=== PATIENT | male | born 2000 | race Caucasian/White ===

== ENCOUNTER 2022-10-24 19:30 | Emergency (ER) | payer BC, SELFPAY ==
[2022-10-24 19:45] VITALS: BP 132/85; PULSE 119; RESP 18; TEMP 38.6; O2SAT 98
[2022-10-24 20:16] LABS: Basophils Absolute Auto 0.01 K/mm3 (0.00-0.10); Basophils Percent Auto 0.1 % (0.0-1.0); Eosinophils Absolute Auto 0.27 K/mm3 (0.02-0.50); Eosinophils Percent Auto 2.2 % (1.0-6.0); Hemoglobin 16.5 g/dL (14.0-18.0); Immature Granulocyte Absolute 0.04 K/mm3 (0.00-0.00); Immature Granulocyte Percent A 0.3 % (0.0-0.0); Lymphocytes Percent Auto 3.2 % (18.0-42.0); Mean Corpuscular HGB Conc 35.1 g/dL (32.0-36.0); Mean Corpuscular Hemoglobin 29.7 pg (27.0-31.0); Mean Corpuscular Volume 84.5 fL (78.0-102.0); Monocytes Absolute Auto 0.27 K/mm3 (0.10-0.90); Monocytes Percent Auto 2.2 % (2.0-11.0); Neutrophils Absolute Auto 11.4 K/mm3 (1.7-7.2); Platelet Count Result 214 K/mm3 (150-420); Red Blood Count 5.56 M/mm3 (4.70-6.10); Red Cell Distribution Width 11.8 % (11.6-14.4); White Blood Count 12.4 K/mm3 (4.8-10.8)
[2022-10-24] MEDS: cefTRIAXone 1 GM, LIDOCAINE HCL 1% LOCAL INJ 2.1 ML IM (20:19)
[2022-10-24] MEDS: TETANUS,DIPHTHERIA,AC PERTUSSIS ADULT 0.5 ML (ADACEL) IM (20:22)
--- NOTE | 2022-10-24 20:28 | PC.NURSE ---
Mother departs from bedside. Pt medicated as ordered. PT denies possibility of STI. Pt has rash to bilateral upper thighs mainly to medial and anterior aspects. Pt denies swimming in fresh or salt water. PT states works at [employer] but is not involved in the maintenance of the [place]. Pt consents to exam. No other obvious wounds to thighs or inguinal area. Pt denies scrotal pain. No redness or rash to scrotum noted. No penile drainage or lesions noted. No inguinal lymphadenopathy or tenderness noted. Central pulses present and strong.
[2022-10-24 20:29] LABS: Alanine Aminotransferase 161 U/L (16-63); Albumin Level 4.4 g/dL (3.4-5.0); Alkaline Phosphatase 66 U/L (46-116); Anion Gap 11 mmol/L (8-16); Aspartate Amino Transferase 51 U/L (15-37); Bilirubin,Total 1.1 mg/dL (0.00-1.00); Blood Urea Nitrogen 14 mg/dL (7-18); Calcium 8.9 mg/dL (8.5-10.1); Carbon Dioxide 28 mmol/L (21-32); Chloride 102 mmol/L (98-108); Estimated Glomerular Filt Rate > 60; Glucose 106 mg/dL (70-99); Osmolality Calculated 292 mOsm/kg (285-295); Potassium 3.8 mmol/L (3.5-5.1); Sodium 141 mmol/L (136-145); Total Protein 7.7 g/dL (6.4-8.2)
[2022-10-24 20:32] LABS: Lactic Acid Reflex 1.5 mmol/L (0.4-2.0)
[2022-10-24 20:47] VITALS: BP 135/90; PULSE 111; RESP 20; TEMP 38.6; O2SAT 100
--- NOTE | 2022-10-24 20:56 | ED.GENADULT ---
HPI - General Adult General Chief complaint: Unspecified Stated complaint: Insect bite on inner Left arm Time Seen by Provider: 10/24/22 19:44 Source: patient Mode of arrival: ambulatory Limitations: no limitations History of Present Illness HPI narrative: patient with a insect bite to his left axillary area with a central punctate lesion with a surrounding area of erythema also have some rash in the groin and abdominal area non itchy with low-grade fever with no shortness of breath no headache no chest pain no nausea vomiting. Onset (ago): day(s) Severity: moderate Related Data Home Medications Medication Instructions Recorded Confirmed Allergy Relief (loratadine) 10 m PO PRN PRN Allergy Symptoms 10/24/22 10/24/22 Allergies Allergy/AdvReac Type Severity Reaction Status Date / Time No Known Allergies Allergy Verified 10/24/22 19:55 Review of Systems Review of Systems: All systems reviewed & are unremarkable except as noted in HPI and below PMFSH Past Medical History Medical History Allergies Body mass index (BMI) of 19 or less in adult Encounter for wellness examination in adult Irritable bowel syndrome with diarrhea Seasonal allergic rhinitis Surgical History Surgical History History of surgery on arm (~2011) [place] teeth extracted (~2016) Family History Family History Mother No problems noted. Father No problems noted. Grandparent Afib Grandparent Skin cancer Grandparent No problems noted. Grandparent No problems noted. Social History Social History Smoking status: Never smoker Alcohol intake: never Substance use: never Substance use type: does not use Exam Const: General: healthy appearing and no acute distress Nutritional Appearance: well nourished Limitations: no limitations HENMT: Head: normal to inspection Eyes: Conjunctivae: conjunctivae normal Neck: Neck: normal visual inspection Chest: Chest palpation & inspection: normal inspection of the chest Cardio: Rate: regular rate Rhythm: regular rhythm GI: GI Palp: Yes Soft to palpation : General: Yes bladder normal to palpation Urinary Catheter: Urinary Catheter: patent and draining Back/Spine/Pelvis: Back: no CVA tenderness Skin: Wounds: wounds noted Neuro: General: patient oriented x3 Cranial nerves: Yes Nystagmus not present Speech: normal speech Extrem: General: normal to inspection and no clubbing, cyanosis or edema Psych: Mental Status: mental status grossly normal Course Course Emergency Course: Labs reviewed with patient his white count is mildly elevated at 12,000 thousand patient does have a low-grade fever and received dose of antibiotic and advised to follow with his primary care physician. Vital Signs Vital signs: Vital Signs Temperature 38.6 C H 10/24/22 19:45 Pulse Rate 119 H 10/24/22 19:45 Respiratory Rate 18 10/24/22 19:45 Blood Pressure 132/85 10/24/22 19:45 Pulse Oximetry 98 10/24/22 19:45 Oxygen Delivery Room Air 10/24/22 19:45 Temperature 38.6 C H 10/24/22 20:47 Pulse Rate 111 H 10/24/22 20:47 Respiratory Rate 20 10/24/22 20:47 Blood Pressure 135/90 10/24/22 20:47 Pulse Oximetry 100 10/24/22 20:47 Oxygen Delivery Room Air 10/24/22 20:47 Medical Decision Making Vital Signs Vital Signs: Vital Signs Temperature 38.6 C H 10/24/22 19:45 Pulse Rate 119 H 10/24/22 19:45 Respiratory Rate 18 10/24/22 19:45 Blood Pressure 132/85 10/24/22 19:45 Pulse Oximetry 98 10/24/22 19:45 Oxygen Delivery Room Air 10/24/22 19:45 Temperature 38.6 C H 10/24/22 20:47 Pulse Rate 111 H 10/24/22 20:47 Respiratory Rate 10/24/22 20:47 Blood Pressure 135/90 10/24/22
--- NOTE | 2022-10-31 12:24 | PC.NURSE ---
final blood culture reports x2 reviewed. no growth after 5 days . no change in plan of care.
== END 2022-10-24 21:19 | disposition home or self-care (01) ==
PROVIDERS: Emergency Provider Emergency Medicine; PCP Family Medicine
DX: L03.112 Cellulitis of left axilla (principal); Z23 Encounter for immunization
CPT/HCPCS: 36415; 80053; 83605; 85025; 87040; 90471; 90715; 96372; 99283; J0696

== ENCOUNTER 2023-02-01 08:50 | Outpatient (CLI) | payer BC, SELFPAY ==
[2023-02-01 09:05] LABS: Appearance Urine Clear (Clear); Basophils Absolute Auto 0.02 K/mm3 (0.00-0.10); Basophils Percent Auto 0.3 % (0.0-1.0); Bilirubin Urine Negative (Negative); Blood Urine Trace-Intact (Negative); Color Urine Light Yellow (Yellow); Eosinophils Absolute Auto 0.31 K/mm3 (0.02-0.50); Eosinophils Percent Auto 4.8 % (1.0-6.0); Glucose Urine UA Negative (Negative); Hematocrit 46.3 % (40.0-54.0); Immature Granulocyte Absolute 0.04 K/mm3 (0.00-0.00); Immature Granulocyte Percent A 0.6 % (0.0-0.0); Ketones Urine Negative (Negative); Leukocyte Esterase Ur Negative (Negative); Lymphocytes Absolute Auto 1.54 K/mm3 (1.10-4.50); Lymphocytes Percent Auto 23.7 % (18.0-42.0); Mean Corpuscular HGB Conc 34.6 g/dL (32.0-36.0); Mean Corpuscular Volume 86.7 fL (78.0-102.0); Mean Platelet Volume 9.3 fl (8.7-11.0); Monocytes Absolute Auto 0.63 K/mm3 (0.10-0.90); Monocytes Percent Auto 9.7 % (2.0-11.0); Neutrophils Percent Auto 60.9 % (50.0-70.0); Nitrate Urine Negative (Negative); Platelet Count Result 236 K/mm3 (150-420); Protein Urine Negative (Negative); Red Blood Count 5.34 M/mm3 (4.70-6.10); Specific Grav Ur <= 1.005 (1.010-1.020); Urobilinogen Urine 0.2 mg/dL (0.2-1.0); White Blood Count 6.5 K/mm3 (4.8-10.8); pH Urine 6.5 (5.0-8.0)
[2023-02-01 09:21] LABS: Add Urine Microscopic? YES; Bacteria Urine Rare /hpf; RBC Urine 0-2 /hpf (0-2); WBC Urine None seen /hpf (0-3)
[2023-02-01 10:07] LABS: Erythrocyte Sedimentation Rate 2 mm/hr (0-15)
[2023-02-01 10:12] LABS: Alanine Aminotransferase 21 U/L (16-63); Albumin Level 4.2 g/dL (3.4-5.0); Alkaline Phosphatase 63 U/L (46-116); Anion Gap 7 mmol/L (8-16); Aspartate Amino Transferase 18 U/L (15-37); Bilirubin,Total 0.8 mg/dL (0.00-1.00); Blood Urea Nitrogen 9 mg/dL (7-18); Carbon Dioxide 33 mmol/L (21-32); Chloride 104 mmol/L (98-108); Cholesterol 153 mg/dL (0-200); Estimated Glomerular Filt Rate > 60; Ferritin 181 ng/mL (26-388); Folic Acid 12.4 ng/mL (8.6->20); GGT 26 U/L (15-85); Glucose 77 mg/dL (70-99); HDL Direct 63 mg/dL (40-60); Iron 90 ug/dL (65-175); LDL Cholesterol Calculated 76 mg/dL (<130); Osmolality Calculated 295 mOsm/kg (285-295); Percent Iron Saturation 32 % (12-57); Potassium 3.8 mmol/L (3.5-5.1); Sodium 144 mmol/L (136-145); Thyroid Stimulating Hormone 1.69 uIU/mL (0.36-3.74); Total Protein 7.1 g/dL (6.4-8.2); Triglycerides 68 mg/dL (0-150); Vitamin B12 342 pg/mL (193-986)
== END 2023-02-01 08:51 | disposition home or self-care (01) ==
LOC: CHSLAB 08:52
PROVIDERS: PCP Family Medicine; Visit Provider Family Medicine
DX: E78.2 Mixed hyperlipidemia (principal); K62.5 Hemorrhage of anus and rectum; R74.8 Abnormal levels of other serum enzymes
CPT/HCPCS: 36415; 80053; 80061; 81001; 82607; 82728; 82746; 82977; 83540; 83550; 84443; 85025; 85652

== ENCOUNTER 2023-02-15 10:18 | Outpatient (CLI) | payer BC, SELFPAY ==
[2023-02-20 19:26] LABS: Immunoglobulin A 213 mg/dL (47-310); TTG IGA AB <1.0 U/mL (<15.0)
[2023-02-21 22:06] LABS: Calprotectin, Stool 2750 mcg/g
== END 2023-02-15 10:19 | disposition home or self-care (01) ==
LOC: CHSLAB 10:19
PROVIDERS: Visit Provider Nurse Practitioner
DX: K62.5 Hemorrhage of anus and rectum (principal); R19.7 Diarrhea, unspecified
CPT/HCPCS: 36415; 82784; 83516; 83993; 87045; 87427; 87449; 87493

== ENCOUNTER 2023-03-10 00:08 | Day surgery (SDC) | payer BC, SELFPAY ==
[2023-02-26 13:39] VITALS: BMI 21.2
[2023-03-10 12:32] VITALS: BP 137/90; PULSE 111; RESP 18; TEMP 36.5; O2SAT 99
[2023-03-10] MEDS: LACTATED RINGERS 1,000 ML 150 ML IV CONT (12:41)
--- NOTE | 2023-03-10 12:54 | PM.HPGS ---
History of Present Illness History of Present Illness Consent: Risks, benefits, and alternatives have been discussed and questions answered. Patient agrees to proceed with procedure. Chief complaint: Diarrhea,Other fecal abnormalities, Narrative: Arash Patino is a 22 year old male Referred for investigation of diarrhea with blood. He was treated for a bug bite with Augmentin in September of this year and has had loose stools since then. He also has a family history of celiac disease. a calprotectin level was quite elevated at 2750. Stool cultures for infectious pathogens were negative. Review of Systems Review of Systems: All systems reviewed & are unremarkable except as noted in HPI and below PMFSH Past Medical History Medical History Allergic reaction due to antibacterial drug allergic reaction to Augmentin with rash starting 10/29/2022 after exposure Started 10/24/2022. Allergies BMI 20.0-20.9, adult Body mass index (BMI) of 19 or less in adult Cellulitis (10/24/22) left axilla, left thigh 10/24/2022. Diarrhea Elevated fecal calprotectin Elevated liver enzymes (10/24/22) AST 51 with ALT 161 in the ER 10/24/2022. AST 18, ALT 21 on 02/01/2023. Encounter for wellness examination in adult Family history of celiac disease Family hx of colon cancer Irritable bowel syndrome with diarrhea Rectal bleeding RLQ abdominal tenderness Seasonal allergic rhinitis Vitamin B12 deficiency (02/01/23) level low at 342 with goal greater than 400 with folic acid 12.4 on 02/01/2023. Surgical History Surgical History History of surgery on arm (~2011) [place] teeth extracted (~2017) Family History Family History Mother No problems noted. Father No problems noted. Grandparent Afib Grandparent Skin cancer Grandparent No problems noted. Grandparent No problems noted. Social History Social History Smoking status: Never smoker Alcohol intake: never Substance use: never Substance use type: does not use Lack of Transportation: No Lack of Food: Never True Current Housing: I Have Housing Concerned About Future Housing: No Difficulty Paying Gas/Electric Bills: No Difficulty Paying for Meds: No Currently Unemployed: No Education: Bachelor's Degree Difficulty w/ Childcare or Family Care: No Living arrangements: with family Spiritual care concerns: No Meds Home Medications and Allergies Home Medications Medication Instructions Recorded Confirmed Type Bacillus coagulans 1 billion cell 1 cell PO DAILY 01/22/23 02/26/23 History chewable tablet (Probiotic (B. coagulans)) calcium polycarbophil 625 mg 625 mg PO BID 01/22/23 02/26/23 History tablet (FiberCon) cyanocobalamin (vitamin B-12) 1,000 mcg PO DAILY 02/05/23 02/26/23 History 1,000 mcg tablet Allergies Allergy/AdvReac Type Severity Reaction Status Date / Time amoxicillin [From Augmentin] Allergy Intermediate Rash Verified 03/10/23 12:32 clavulanic acid Allergy Intermediate Rash Verified 03/10/23 12:32 [From Augmentin] clindamycin AdvReac Diarrhea Verified 03/10/23 12:32 Penicillins AdvReac Rash Verified 03/10/23 12:32 Vital Signs Vital Signs - 24 hr 03/10/23 12:32 Temperature 36.5 C Pulse Rate 111 H Respiratory Rate 18 Blood Pressure 137/90 Pulse Oximetry 99 Oxygen Delivery Room Air Exam Const: General: alert Orientation/consciousness: patient oriented x3 Resp: Auscultation: clear to auscultation bilaterally Cardio: Rhythm: regular rhythm GI: GI Palp: Yes Soft to palpation and No Tenderness to palpation present (GI) Neuro: General: patient oriented x3 Assessment and Plan Assessment and plan (1) Chronic diarrhea: Code(s): K52.9 - Noninfective g
--- NOTE | 2023-03-10 12:58 | WPDANESEPPF ---
Anes - Initial Pre Proc Eval Procedure: Operation Date: 03/10/23 13:45 Proposed Procedures p Colonoscopy - Vicente Cantrell MD Date/Time: 03/10/23 12:58 Surgeon: Vicente Cantrell MD Pre Op Diagnosis: Diarrhea,Other fecal abnormalities, Patient Data Age: 22 Gender: M Height: 1.65 m Weight: 54.7 kg Last Vital Signs Temp 97.7 F 03/10/23 12:32 Pulse 111 H 03/10/23 12:32 Resp 18 03/10/23 12:32 BP 137/90 03/10/23 12:32 Pulse Ox 99 03/10/23 12:32 O2 Del Method Room Air 03/10/23 12:32 Allergies Allergy/AdvReac Type Severity Reaction Status Date / Time amoxicillin [From Augmentin] Allergy Intermediate Rash Verified 03/10/23 12:32 clavulanic acid Allergy Intermediate Rash Verified 03/10/23 12:32 [From Augmentin] clindamycin AdvReac Diarrhea Verified 03/10/23 12:32 Penicillins AdvReac Rash Verified 03/10/23 12:32 Home Medications Medication Instructions Recorded Confirmed Type Bacillus coagulans 1 billion cell 1 cell PO DAILY 01/22/23 02/26/23 History chewable tablet (Probiotic (B. coagulans)) calcium polycarbophil 625 mg 625 mg PO BID 01/22/23 02/26/23 History tablet (FiberCon) cyanocobalamin (vitamin B-12) 1,000 mcg PO DAILY 02/05/23 02/26/23 History 1,000 mcg tablet Patient hx anesthesia problems: none Family hx anesthesia problems: none Results Review: All pre-operative results and documents have been reviewed as part of the pre-operative evaluation. [facility] Past Medical History Medical History Allergic reaction due to antibacterial drug allergic reaction to Augmentin with rash starting 10/29/2022 after exposure Started 10/24/2022. Allergies BMI 20.0-20.9, adult Body mass index (BMI) of 19 or less in adult Cellulitis (10/24/22) left axilla, left thigh 10/24/2022. Diarrhea Elevated fecal calprotectin Elevated liver enzymes (10/24/22) AST 51 with ALT 161 in the ER 10/24/2022. AST 18, ALT 21 on 02/01/2023. Encounter for wellness examination in adult Family history of celiac disease Family hx of colon cancer Irritable bowel syndrome with diarrhea Rectal bleeding RLQ abdominal tenderness Seasonal allergic rhinitis Vitamin B12 deficiency (02/01/23) level low at 342 with goal greater than 400 with folic acid 12.4 on 02/01/2023. Surgical History Surgical History History of surgery on arm (~2011) [place] teeth extracted (~2016) Family History Family History Mother No problems noted. Father No problems noted. Grandparent Afib Grandparent Skin cancer Grandparent No problems noted. Grandparent No problems noted. Social History Social History Smoking status: Never smoker Alcohol intake: never Substance use: never Substance use type: does not use Lack of Transportation: No Lack of Food: Never True Current Housing: I Have Housing Concerned About Future Housing: No Difficulty Paying Gas/Electric Bills: No Difficulty Paying for Meds: No Currently Unemployed: No Education: Bachelor's Degree Difficulty w/ Childcare or Family Care: No Living arrangements: with family Spiritual care concerns: No Anes - Eval Final PreProcedure Day of Procedure 03/10/23 12:58 Patient weight: normal Heart: regular rate and rhythm Lungs: clear to auscultation Airway: Mallampati scale class II Neurological: alert and oriented Last oral intake: >/= 8 hours ASA classification: II Emergent: no Anesthetic plan: proceed Anesthesia type and monitoring: general GIVS and standard monitoring Results Review: All pre-operative results and documents have been reviewed as part of the pre-operative evaluation. Informed Consent: The patient's anesthetic plan and its attendant risks and benefits were discu
[2023-03-10 14:09] VITALS: BP 105/63; PULSE 101; RESP 18; O2SAT 95
[2023-03-10 14:19] VITALS: BP 107/76; PULSE 96; RESP 16; O2SAT 97
[2023-03-10 14:29] VITALS: BP 115/78; PULSE 88; RESP 19; O2SAT 100
[2023-03-10 14:38] VITALS: BP 119/76; PULSE 88; RESP 23; O2SAT 100
== END 2023-03-10 14:49 | disposition home or self-care (01) ==
PROVIDERS: PCP Family Medicine; Visit Provider Internal Medicine Gastroenterology
PROC: 0DJD8ZZ Inspection of Lower Intestinal Tract, Via Natural or Artificial Opening Endoscopic (ICD-10-PCS; CPT 45378; principal; 2023-03-10 13:45)
DX: K52.82 Eosinophilic colitis (principal); K51.30 Ulcerative (chronic) rectosigmoiditis without complications; K64.8 Other hemorrhoids; R19.5 Other fecal abnormalities; E53.8 Deficiency of other specified B group vitamins; Z80.0 Family history of malignant neoplasm of digestive organs; Z83.79 Family history of other diseases of the digestive system
CPT/HCPCS: 45380; 88305; J2001; J2704; J7120

== ENCOUNTER 2023-04-19 08:54 | Outpatient (CLI) | payer BC, SELFPAY ==
[2023-04-19 09:49] LABS: CRP < 0.5 mg/dL (0.0-0.9)
[2023-04-27 17:33] LABS: Calprotectin, Stool 1280 mcg/g
== END 2023-04-19 08:55 | disposition home or self-care (01) ==
LOC: CHSLAB 08:55
PROVIDERS: PCP Internal Medicine Gastroenterology; Visit Provider Internal Medicine Gastroenterology
DX: K51.90 Ulcerative colitis, unspecified, without complications (principal)
CPT/HCPCS: 36415; 83993; 86140

== ENCOUNTER 2023-08-02 09:51 | Outpatient (CLI) | payer BC, SELFPAY ==
[2023-08-02 11:21] LABS: Toxigenic C. Diff NEGATIVE (NEGATIVE)
[2023-08-08 18:11] LABS: Calprotectin, Stool 552 mcg/g
== END 2023-08-02 09:52 | disposition home or self-care (01) ==
LOC: CHSLAB 09:52
PROVIDERS: PCP Internal Medicine Gastroenterology; Visit Provider Internal Medicine Gastroenterology
DX: K51.30 Ulcerative (chronic) rectosigmoiditis without complications (principal)
CPT/HCPCS: 83993; 87493; 89055

== ENCOUNTER 2023-11-15 07:04 | Outpatient (CLI) | payer BC, SELFPAY ==
[2023-11-20 18:24] LABS: Calprotectin, Stool 7 mcg/g
== END 2023-11-15 07:05 | disposition home or self-care (01) ==
PROVIDERS: PCP Family Medicine; Visit Provider Nurse Practitioner
DX: K51.30 Ulcerative (chronic) rectosigmoiditis without complications (principal)
CPT/HCPCS: 83993

== ENCOUNTER 2023-11-22 07:46 | Emergency (ER) | payer BC, SELFPAY ==
[2023-11-22 07:48] VITALS: BP 145/94; PULSE 82; RESP 17; TEMP 37; O2SAT 99
--- NOTE | 2023-11-22 07:50 | ED.WOUNDLAC ---
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 Currently no bleeding no redness nor erythema no pain no fever chills patient is up-to-date with his tetanus. Onset (ago): day(s) Location: other Extremity Location: Right: foot ( avulsion injury/puncture wound) Place: outdoors Patient tetanus UTD: Yes Context: accidental Related Data Home Medications Medication Instructions Recorded Confirmed prednisone 5 mg tablet 5 mg PO DIRECTED 09/10/23 11/22/23 Allergies Allergy/AdvReac Type Severity Reaction Status Date / Time amoxicillin [From Augmentin] Allergy Intermediate Rash Verified 11/22/23 07:47 clavulanic acid Allergy Intermediate Rash Verified 11/22/23 07:47 [From Augmentin] clindamycin AdvReac Diarrhea Verified 11/22/23 07:47 Penicillins AdvReac Rash Verified 11/22/23 07:47 Review of Systems Review of Systems: All systems reviewed & are unremarkable except as noted in HPI and below PMFSH Past Medical History Medical History Allergic reaction due to antibacterial drug allergic reaction to Augmentin with rash starting 10/29/2022 after exposure Started 10/24/2022. Allergies BMI 20.0-20.9, adult BMI 21.0-21.9, adult Body mass index (BMI) of 19 or less in adult Cellulitis (10/24/22) left axilla, left thigh 10/24/2022. Diarrhea Elevated fecal calprotectin Elevated liver enzymes (10/24/22) AST 51 with ALT 161 in the ER 10/24/2022. AST 18, ALT 21 on 02/01/2023. Encounter for wellness examination in adult Family history of celiac disease Family hx of colon cancer Irritable bowel syndrome with diarrhea Rectal bleeding RLQ abdominal tenderness Seasonal allergic rhinitis Ulcerative colitis (~2022) colonoscopy 03/10/2023 with chronic ulcerative colitis of the rectosigmoid colon. 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 Vitamin B12 deficiency (02/01/23) level low at 342 with goal greater than 400 with folic acid 12.4 on 02/01/2023. Surgical History Surgical History History of surgery on arm (~2011) [place] teeth extracted (~2017) Family History Family History Mother No problems noted. Father No problems noted. Grandparent Afib Grandparent Skin cancer Grandparent No problems noted. Grandparent No problems noted. Social History Social History Smoking status: Never smoker Alcohol intake: never Substance use: never Substance use type: does not use Lack of Transportation: No Lack of Food: Never True Current Housing: I Have Housing Concerned About Future Housing: No Difficulty Paying Gas/Electric Bills: No Difficulty Paying for Meds: No Currently Unemployed: No Education: Bachelor's Degree Difficulty w/ Childcare or Family Care: No Living arrangements: with family Spiritual care concerns: No Exam Const: General: healthy appearing Nutritional Appearance: well nourished Orientation/consciousness: patient oriented x3 Limitations: no limitations Resp: Effort & Inspection: normal respiratory effort Cardio: Rate: regular rate Rhythm: regular rhythm Skin: Wounds: wounds noted Other: Small puncture wound to the plantar surface of his right foot warmth or tenderness. Course Course Emergency Course: Triple antibiotic ointment was applied patient is up-to-date with his tetanus. Vital Signs Vital signs: Vital Signs
[2023-11-22 08:06] VITALS: BP 145/94; PULSE 82; RESP 17; TEMP 37; O2SAT 99
== END 2023-11-22 08:06 | disposition home or self-care (01) ==
LOC: CHSED 07:58
PROVIDERS: Emergency Provider Emergency Medicine; PCP Family Medicine
DX: S91.331A Puncture wound without foreign body, right foot, initial encounter (principal); Z79.899 Other long term (current) drug therapy; W26.8XXA Contact with other sharp object(s), not elsewhere classified, initial encounter; Y92.79 Other farm location as the place of occurrence of the external cause
CPT/HCPCS: 99283

== ENCOUNTER 2024-02-07 12:28 | Outpatient (CLI) | payer BC, SELFPAY ==
[2024-02-07 12:42] LABS: Basophils Absolute Auto 0.01 K/mm3 (0.00-0.10); Basophils Percent Auto 0.2 % (0.0-1.0); Eosinophils Absolute Auto 0.44 K/mm3 (0.02-0.50); Eosinophils Percent Auto 6.7 % (1.0-6.0); Hematocrit 46.4 % (40.0-54.0); Hemoglobin 16.1 g/dL (14.0-18.0); Immature Granulocyte Absolute 0.01 K/mm3 (0.00-0.00); Immature Granulocyte Percent A 0.2 % (0.0-0.0); Lymphocytes Absolute Auto 2.06 K/mm3 (1.10-4.50); Lymphocytes Percent Auto 31.3 % (18.0-42.0); Mean Corpuscular HGB Conc 34.7 g/dL (32-36); Mean Corpuscular Hemoglobin 29.1 pg (27.0-31.0); Mean Corpuscular Volume 83.9 fL (78.0-102.0); Mean Platelet Volume 9.9 fl (8.7-11.0); Monocytes Absolute Auto 0.68 K/mm3 (0.10-0.90); Monocytes Percent Auto 10.3 % (2.0-11.0); Neutrophils Absolute Auto 3.38 K/mm3 (1.70-7.20); Neutrophils Percent Auto 51.3 % (50.0-70.0); Platelet Count Result 252 K/mm3 (150-420); Red Blood Count 5.53 M/mm3 (4.70-6.10); Red Cell Distribution Width 11.9 % (11.6-14.4); White Blood Count 6.6 K/mm3 (4.8-10.8)
[2024-02-07 13:40] LABS: Erythrocyte Sedimentation Rate 2 mm/hr (0-15)
[2024-02-07 15:05] LABS: Alanine Aminotransferase 31 U/L (6-50); Albumin Level 4.7 g/dL (3.5-5.1); Alkaline Phosphatase 49 U/L (38-126); Anion Gap 11 mmol/L (4-12); Aspartate Amino Transferase 74 U/L (17-59); Bilirubin,Total 0.6 mg/dL (0.2-1.3); Blood Urea Nitrogen 16 mg/dL (9-20); Calcium 9.3 mg/dL (8.4-10.2); Carbon Dioxide 31 mmol/L (22-30); Chloride 98 mmol/L (98-107); Estimated Glomerular Filt Rate > 60; Glucose 94 mg/dL (65-110); Osmolality Calculated 291 mOsm/kg (285-295); Sodium 140 mmol/L (137-145)
== END 2024-02-07 12:29 | disposition home or self-care (01) ==
PROVIDERS: PCP Family Medicine; Visit Provider Family Medicine
DX: R74.8 Abnormal levels of other serum enzymes (principal); K51.90 Ulcerative colitis, unspecified, without complications; E53.8 Deficiency of other specified B group vitamins
CPT/HCPCS: 36415; 80053; 82607; 83735; 85025; 85652

== ENCOUNTER 2024-03-09 10:42 | Emergency (ER) | payer OTHER, SELFPAY ==
--- NOTE | ~2024-03-09 | XR_ITS ---
XR knee RT min 4V 03/09/2024 11:00 INDICATION: Right knee pain PROCEDURE: 4 views right knee COMPARISON: No prior studies for comparison. FINDINGS: Fracture, dislocation or subluxation is not identified. No joint effusion. The soft tissues appear within normal limits. No foreign bodies are identified. IMPRESSION: 1: NO ACUTE BONE OR JOINT ABNORMALITY IDENTIFIED. Reviewed, dictated and finalized at location B.
[2024-03-09 10:42] VITALS: BP 125/84; PULSE 92; RESP 18; TEMP 36.6; O2SAT 100
--- NOTE | 2024-03-09 11:35 | PC.NURSE ---
PT IS LYING ON STRETCHER WITH ICE PACK IN PLACE. PT IS AWAITING RESULTS AND ERP DECISION. WILL CONTINUE TO MONITOR. NO CHANGE IN PT STATUS.
--- NOTE | 2024-03-09 11:37 | ED.LOWEXIN ---
HPI - Extremity Injury (Lower) General Chief Complaint: Extremity Injury, Lower Stated Complaint: knee injury Time Seen by Provider: 03/09/24 10:51 Source: patient Mode of arrival: ambulatory History of Present Illness HPI Narrative: patient is a 23-year-old male with significant past medical history that presents today for right knee pain. Patient states that he was working at his work and lifting something over palate and twisted his right knee. He says his right knee well laterally all rest his body went medially. He states that the pain is around the entire knee cap. MD complaint: knee injury Onset (ago): hour(s) Injury: Right: knee Type of Injury: eversion and hyperextension Place: work Severity: mild Severity scale (1-10): 3 Relieving factors: nothing Exacerbating factors: nothing Context: fall Other symptoms: none Related Data Home Medications Medication Instructions Recorded Confirmed fluticasone propionate 50 1 spray intranasal BID 02/17/24 03/09/24 mcg/actuation nasal spray,suspension (Flonase Allergy Relief) loratadine 10 mg tablet (Claritin) 10 mg PO DAILY PRN allergic 02/17/24 03/09/24 symptoms Allergies Allergy/AdvReac Type Severity Reaction Status Date / Time amoxicillin [From Augmentin] Allergy Intermediate Rash Verified 03/09/24 10:48 clavulanic acid Allergy Intermediate Rash Verified 03/09/24 10:48 [From Augmentin] clindamycin AdvReac Diarrhea Verified 03/09/24 10:48 Penicillins AdvReac Rash Verified 03/09/24 10:48 Review of Systems Review of Systems: All systems reviewed & are unremarkable except as noted in HPI and below Constitutional: Constitutional: Reports as per HPI Eyes: Eyes: Reports as per HPI ENT: Reports system reviewed and no additional complaints, except as documented Cardiovascular: Cardiovascular: Reports as per HPI Respiratory: Respiratory: Reports no additional respiratory complaints Gastrointestinal: Gastrointestinal: Reports no additional gastrointestinal complaints Genitourinary: Genitourinary: Reports no additional male genitourinary complaints Musculoskeletal: Musculoskeletal: Reports as per HPI and Reports arthralgias ( Right knee) Integumentary/Breasts: Skin/Breast: Reports system reviewed and no additional complaints, except as docu Neurologic: Reports system reviewed and no additional complaints, except as documented Psychiatric: Psychiatric: Reports no additional psychiatric complaints Endocrine: Endocrine: Reports no additional endocrine complaints Hematologic/Lymphatic: Hematologic/Lymphatic: Reports no additional hematologic/lymphatic complaints Allergic/Immunologic: Allergic/Immunologic: Reports no additional allergic/immunologic complaints [facility] [place] Past Medical History Medical History Allergic reaction due to antibacterial drug allergic reaction to Augmentin with rash starting 10/29/2022 after exposure Started 10/24/2022. Allergies BMI 20.0-20.9, adult BMI 21.0-21.9, adult BMI 22.0-22.9, adult Body mass index (BMI) of 19 or less in adult Cellulitis (10/24/22) left axilla, left thigh 10/24/2022. Chronic diarrhea Diarrhea Elevated fecal calprotectin Elevated liver enzymes (10/24/22) AST 51 with ALT 161 in the ER 10/24/2022. AST 18, ALT 21 on 02/01/2023. AST elevated at 74 with ALT 31 on 02/07/2024. Encounter for wellness examination in adult Family history of celiac disease Family hx of colon cancer Irritable bowel syndrome with diarrhea Rectal bleeding RLQ abdominal tenderness Seasonal allergic rhinitis Ulcerative colitis (~2022) colonoscopy 03/10/2023 with chronic ulcerative colitis of the rectosigmoid colon. 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 Vitamin B12 deficiency (02/01/23) level low at 342 with goal greater than 400 with folic acid 12.4 on 02/01/2023. level low at 280 on 02/07/2024. Surgical History Surgical History (Reviewed 03/09/24 @ 11:40 by Ibeth
--- NOTE | 2024-03-09 11:53 | PC.NURSE ---
ALEJANDRO APPLIED PER ERP, +PMS POST ALEJANDRO APPLICATION
[2024-03-09 11:58] VITALS: BP 122/68; PULSE 62; RESP 16; O2SAT 99
== END 2024-03-09 11:58 | disposition home or self-care (01) ==
PROVIDERS: Emergency Provider Family Medicine; PCP Family Medicine
DX: S83.91XA Sprain of unspecified site of right knee, initial encounter (principal); X50.0XXA Overexertion from strenuous movement or load, initial encounter; K58.9 Irritable bowel syndrome, unspecified
CPT/HCPCS: 73564; 99283

== ENCOUNTER 2024-05-29 11:07 | Outpatient (CLI) | payer BC, SELFPAY ==
[2024-05-29 11:43] LABS: Alanine Aminotransferase 30 U/L (16-63); Albumin Level 4.5 g/dL (3.4-5.0); Alkaline Phosphatase 73 U/L (46-116); Aspartate Amino Transferase 18 U/L (15-37); Bilirubin Direct 0.1 mg/dL (0-0.2); Bilirubin,Total 0.7 mg/dL (0.00-1.00)
[2024-05-31 15:24] LABS: Hepatitis A Antibody IgM NON-REACTIVE (NON-REACTIVE); Hepatitis B Core Antibody NON-REACTIVE (NON-REACTIVE); Hepatitis B Surface Antigen NON-REACTIVE (NON-REACTIVE); Hepatitis C Virus Antibody NON-REACTIVE (NON-REACTIVE)
== END 2024-05-29 11:08 | disposition home or self-care (01) ==
PROVIDERS: PCP Family Medicine; Visit Provider Nurse Practitioner
DX: R74.01 Elevation of levels of liver transaminase levels (principal)
CPT/HCPCS: 36415; 80074; 80076

== ENCOUNTER 2024-07-17 10:59 | Outpatient (CLI) | payer BC, SELFPAY ==
[2024-07-17 11:34] LABS: Alanine Aminotransferase 28 U/L (16-63); Albumin Level 4.3 g/dL (3.4-5.0); Alkaline Phosphatase 64 U/L (46-116); Anion Gap 9 mmol/L (4-12); Aspartate Amino Transferase 16 U/L (15-37); Bilirubin,Total 0.5 mg/dL (0.00-1.00); Blood Urea Nitrogen 10 mg/dL (7-18); Carbon Dioxide 31 mmol/L (21-32); Chloride 103 mmol/L (98-108); Estimated Glomerular Filt Rate > 60; GGT 26 U/L (15-85); Glucose 96 mg/dL (70-99); Osmolality Calculated 295 mOsm/kg (285-295); Potassium 3.9 mmol/L (3.5-5.1); Sodium 143 mmol/L (136-145)
== END 2024-07-17 11:00 | disposition home or self-care (01) ==
LOC: CHSLAB 11:00
PROVIDERS: PCP Family Medicine; Visit Provider Family Medicine
DX: R74.8 Abnormal levels of other serum enzymes (principal)
CPT/HCPCS: 36415; 80053; 82977

== ENCOUNTER 2024-07-27 09:36 | Outpatient (CLI) | payer OTHER, SELFPAY ==
--- NOTE | ~2024-07-27 | XR_ITS ---
EXAMINATION: XR knee RT min 4V DATE: 07/27/2024 10:02 INDICATION: Right knee pain. Injury. TECHNIQUE: 4 views of right knee were obtained. COMPARISON: Right knee radiographs 03/09/2024 FINDINGS: Alignment is normal. No fracture. Joint spaces are normal. No knee joint effusion. IMPRESSION: 1. Normal right knee. Reviewed, dictated and finalized at location A. FORMER IMPRESSION: 1. Normal right knee.
== END 2024-07-27 09:37 | disposition home or self-care (01) ==
LOC: CHSLAB 09:40
PROVIDERS: PCP Family Medicine; Visit Provider Orthopaedic Surgery
DX: M25.561 Pain in right knee (principal)
CPT/HCPCS: 73564

== ENCOUNTER 2024-08-07 11:15 | Outpatient (CLI) | payer OTHER, SELFPAY ==
--- NOTE | ~2024-08-07 | MR_ITS ---
MRI of the right knee Clinical history: Pain Technique: Coronal proton density and proton density-weighted images, sagittal proton-density and T2 fat-sat images, and axial proton-density fat-saturated images were acquired. Findings: Anterior and posterior cruciate ligaments are intact. Medial collateral ligament and the la teral collateral complex are intact. Popliteus tendon is intact. Medial and lateral menisci are intact, without evidence of tear. Articular cartilage is well preserved throughout the knee. Bone marrow signals are unremarkable. Extensor mechanism is intact. No joint effusion or Clark's cyst. Impression: No significant abnormality seen. Reviewed, dictated and finalized at location . Impression: No significant abnormality seen.
== END 2024-08-07 11:16 | disposition home or self-care (01) ==
LOC: MICIMG 11:16
PROVIDERS: PCP Family Medicine; Visit Provider Orthopaedic Surgery
DX: S89.91XA Unspecified injury of right lower leg, initial encounter (principal); X58.XXXA Exposure to other specified factors, initial encounter
CPT/HCPCS: 73721

== ENCOUNTER 2024-09-18 10:11 | Outpatient (CLI) | payer BC, SELFPAY | END 2024-09-18 10:12 | disposition home or self-care (01) | PROVIDERS: PCP Family Medicine; Visit Provider Internal Medicine Gastroenterology | DX: K51.30 Ulcerative (chronic) rectosigmoiditis without complications (principal) | CPT/HCPCS: 83993 ==

== ENCOUNTER 2025-03-19 10:49 | Outpatient (CLI) | payer BC, SELFPAY ==
[2025-03-19 12:30] LABS: Alanine Aminotransferase 23 U/L (6-50); Albumin Level 4.8 g/dL (3.5-5.1); Alkaline Phosphatase 64 U/L (38-126); Anion Gap 9 mmol/L (4-12); Aspartate Amino Transferase 29 U/L (17-59); Bilirubin,Total 0.6 mg/dL (0.2-1.3); Blood Urea Nitrogen 10 mg/dL (9-20); CRP < 0.5 mg/dL (<1.0); Calcium 9.8 mg/dL (8.4-10.2); Carbon Dioxide 31 mmol/L (22-30); Chloride 104 mmol/L (98-107); Estimated Glomerular Filt Rate > 60; Glucose 97 mg/dL (65-110); Osmolality Calculated 297 mOsm/kg (285-295); Potassium 3.9 mmol/L (3.4-5.0); Sodium 144 mmol/L (137-145); Total Protein 8.5 g/dL (6.3-8.2)
[2025-03-23 23:07] LABS: Calprotectin, Fecal 1420 ug/g (0-120)
== END 2025-03-19 10:50 | disposition home or self-care (01) ==
LOC: CHSLAB 10:50
PROVIDERS: PCP Family Medicine; Visit Provider Internal Medicine Gastroenterology
DX: K51.20 Ulcerative (chronic) proctitis without complications (principal); K51.30 Ulcerative (chronic) rectosigmoiditis without complications
CPT/HCPCS: 36415; 80053; 83993; 85652; 86140